=== PATIENT | male | born 1980 | race Caucasian/White ===

== ENCOUNTER → 2016-10-13 | Outpatient (CLI) | payer OTHER ==
--- NOTE | 2016-10-13 18:25 | DIAGNOSTIC IMAGING REPORT ---
MRI OF THE CERVICAL SPINE WITHOUT IV CONTRAST CLINICAL HISTORY: Cervicalgia. Left upper extremity radiculopathy. COMPARISON STUDY: No priors. TECHNIQUE: MRI of the cervical spine is performed utilizing various T1 and T2-weighted sequences in the axial and sagittal planes. IV contrast was not administered for this examination. FINDINGS: Cervical spine: Vertebral body height and alignment are maintained throughout the cervical spine. Normal marrow signal intensity is preserved throughout the visualized bony structures. The atlantodental articulation appears maintained. The spinous processes appear intact. Intervertebral discs: There is minimal degenerative disc desiccation throughout the cervical spine. The discs are normal in height. Spinal cord: Visualized spinal cord is normal in morphology and signal intensity. C2-C3: Unremarkable. C3-C4: A posterior disc osteophyte complex abuts the ventral cord. Uncovertebral and facet arthropathy causes mild left greater than right neural foraminal stenosis. C4-C5: A posterior disc osteophyte complex abuts the ventral cord. Predominant uncovertebral arthropathy causes moderate left and minimal right neural foraminal narrowing. C5-C6: A posterior disc osteophyte complex abuts the ventral cord. Uncovertebral and facet arthropathy cause severe left and minimal right neural foraminal stenosis. C6-C7: A posterior disc osteophyte complex eccentric to the left abuts the ventral cord. Predominant uncovertebral arthropathy causes mild left-sided neural foraminal stenosis. C7-T1: Unremarkable. Soft tissues: The prevertebral and paraspinous soft tissues are within normal limits. Brain parenchyma: Partially imaged brain parenchyma at the skull base is normal as visualized. IMPRESSION: 1. Mild multilevel cervical spondylosis as detailed above, greatest at C5-C6 where there is severe left-sided neural foraminal stenosis. See discussion for detailed level by level analysis. 2. No bony abnormalities seen. 3. The cervical spinal cord is normal in morphology and signal intensity. Dictated: 10/13/2016 5:58 PM Transcribed: 10/13/2016 6:25 PM [facility] Electronically signed by: Pj Sykes M.D. 10/13/2016 6:27 PM Dictated Date/Time: 10/13/2016 5:58 PM
== END | disposition home or self-care (01) ==
LOC: C.MRI 17:02
PROVIDERS: ATTEND Family Medicine
DX: M54.12 Radiculopathy, cervical region (principal)